=== PATIENT | male | born 1950 | race Caucasian/White ===

== ENCOUNTER 2016-05-16 12:45 | Observation (INO) | payer OTHER ==
[~2016-05-16 12:45] MED LIST: BUPIVACAINE 0.5% 30 ML SDV ONE; LIDOCAINE 1% 30 ML SDV ONE; SODIUM BICARBONATE 10 MEQ/10 ML SYR IVP ONE
[2016-05-16] MEDS ORDERED: LIDOCAINE 1% 2 ML INJ ONE (13:08)
[2016-05-16] MEDS ORDERED: levOFLOXACIN 500 MG/DEXTROSE 100 ML IV ONE (14:30)
[2016-05-16] MEDS ORDERED: fentaNYL 100 MCG/2 ML INJ ONE ×2 (14:40)
[2016-05-16] MEDS ORDERED: MIDAZOLAM 2 MG/2 ML VIAL ONE (14:40)
[2016-05-16] MEDS ORDERED: DEXAMETHASONE 4 MG/ML VIAL ONE ×2 (14:41)
[2016-05-16] MEDS ORDERED: PROPOFOL 200 MG/20 ML VIAL ONE (14:41)
[2016-05-16] MEDS ORDERED: ROCURONIUM 50 MG/5 ML VIAL ONE (14:41)
[2016-05-16] MEDS ORDERED: LIDOCAINE 2% 100 MG/5 ML SYR ONE (14:41)
[2016-05-16] MEDS ORDERED: ONDANSETRON 4 MG/2 ML VIAL IVP PRN (16:34)
[2016-05-16] MEDS: OXYCODONE/APAP 5/325 TAB PO PRN (18:13)
[2016-05-16 18:40] VITALS: RESP 16
--- NOTE | 2016-05-16 18:59 | SOAPPROG ---
SOAP Progress Note Assessment/Plan: Assessment: POSTOP STABLE. WOUNDS DRY. TOLERATING P.O. Plan: HOME IN THE A.M. 05/16/16 18:58 Objective: Vital Signs Temp Pulse Resp BP Pulse Ox 36.8 C 91 16 127/69 H 96 05/16/16 18:38 05/16/16 18:38 05/16/16 18:38 05/16/16 18:38 05/16/16 18:38 05/15/16 05/16/16 05/17/16 05:59 05:59 05:59 Intake Total 620 Output Total 5 Balance 615 ICD10 Worksheet Patient Problems: Problems Problem Status Onset Chronic renal failure Acute - ICD10 Problem Qualifiers (1) Chronic renal failure Qualifiers: Chronic kidney disease stage: C
[2016-05-16] MEDS ORDERED: ZOLPIDEM TARTRATE 5 MG TAB PO PRN (19:40)
[2016-05-16] MEDS ORDERED: PNEUMOC 13-VAL CONJ-DIP CRM/PF 0.5 ML SYR IM ONE (20:39)
[2016-05-16] MEDS: METOPROLOL TARTRATE 25 MG TAB PO SCH (20:47)
[2016-05-17] MEDS ORDERED: LEVOTHYROXINE 112 MCG TAB PO SCH (06:00)
[2016-05-17] MEDS: OXYCODONE/APAP 5/325 TAB PO PRN (07:24)
[2016-05-17 07:55] VITALS: BP 117/67; PULSE 112; TEMP 98.4; O2SAT 94
[2016-05-17] MEDS ORDERED: SEVELAMER HCL 800 MG TAB PO SCH (08:00)
[2016-05-17] MEDS: METOPROLOL TARTRATE 25 MG TAB PO SCH (08:01)
--- NOTE | 2016-05-17 08:08 | SOAPPROG ---
SOAP Progress Note Assessment/Plan: Assessment/Plan: 66 Y M s/p PD cath placement. POD#1. Doing well. Stayed overnight for social reasons. D/c to home today. 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 S: Sore, but pain controlled. No N/V. O: alert, nad no wob rrr abd soft, wounds well dressed and dressing with minor serosanguinous shadowing 05/17/16 08:06 Objective: Vital Signs Temp Pulse Resp BP Pulse Ox 36.9 C 112 H 16 117/67 94 05/17/16 07:53 05/17/16 08:01 05/17/16 07:53 05/17/16 08:01 05/17/16 07:53 05/16/16 05/17/16 05/18/16 05:59 05:59 05:59 Intake Total 620 300 Output Total 305 325 Balance 315 -25 ICD10 Worksheet Patient Problems: Problems Problem Status Onset Chronic renal failure Acute
[2016-05-17] MEDS ORDERED: ATORVASTATIN CALCIUM 10 MG TAB PO SCH (09:00)
[2016-05-17] MEDS ORDERED: FERROUS SULFATE 325 MG TAB PO SCH (09:00)
[2016-05-17] MEDS ORDERED: GABAPENTIN 100 MG CAP PO SCH (09:00)
[2016-05-17] MEDS ORDERED: amLODIPine BESYLATE 5 MG TAB PO SCH (09:00)
[2016-05-17] MEDS ORDERED: ASPIRIN 81 MG CHEWABLE TAB PO SCH (09:00)
[2016-05-17] MEDS ORDERED: ALLOPURINOL 100 MG TAB PO SCH (09:00)
--- NOTE | 2016-05-17 10:11 | GOP ---
[f rep st] OPERATIVE REPORT DATE OF OPERATION: 05/16/2016 SURGEON: Chandra Galindo MD MANAGER PERFORMANCE: Letha Fenton PA-C ANESTHESIOLOGIST: Daniel Muñiz MD PREOPERATIVE DIAGNOSIS: Chronic renal failure. POSTOPERATIVE DIAGNOSIS: Chronic renal failure. PROCEDURE PERFORMED: Laparoscopic peritoneal dialysis catheter. FINDINGS: Patient was found to have a good flow and good position of the catheter. Did have some i ntraabdominal adhesions for unknown reasons. DESCRIPTION OF PROCEDURE: The patient was taken to the operating room where he received satisfactor y general endotracheal anesthesia by Dr. Daniel Muñiz MD, placed in the supine position, prep ped and draped in usual sterile fashion. A periumbilical incision was made and carried down to the rectus sheath. A Veress needle was inserted. Pneumoperitoneum was established. Trocar was introdu frank. Laparoscope was introduced. Good visualization was obtained. A 2nd trocar was placed in the left lower quadrant under direct vision. A swan neck catheter was introduced via the upper incision and positioned in the depths of the pelvis. After the trocar was then removed, the fascial incisio n was closed with 0 Vicryl interrupted sutures to position the Dacron pledget underneath the fascia and above the perineum. The remaining portion of the catheter was then tunneled out through the [facility] trocar site. The abdomen was instilled with 400 cc of saline and then returned 300 cc without di fficulty. The wounds were infiltrated with 0.5% Marcaine. Subcu was closed with 3-0 Vicryl and ski n with a 4-0 Monocryl subcuticular stitch. The wounds were dressed. He tolerated the procedure wel l, was taken recovery room in good condition. There were no complications. /[id number]/MODL
[2016-05-17] MEDS ORDERED: HEPARIN 5,000 UNIT/0.5 ML SYR SC SCH (22:00)
--- NOTE | 2016-05-26 12:59 | GDS ---
[f rep st] DISCHARGE SUMMARY DISCHARGE DIAGNOSES: 1. Status post laparoscopic-guided peritoneal dialysis placement. 2. Chronic kidney disease. Other diagnoses include: 1. Anemia. 2. Hypertension. 3. Hypothyroidism. 4. Osteoarthrosis. 5. Remote alcohol abuse and NSAID overuse. PROCEDURES: Laparoscopic-guided peritoneal dialysis catheter placement. FINDINGS: Patient was found to have good flow and good position of the catheter. He did have some intraabdominal adhesions for unknown reasons. HOSPITAL COURSE: The patient is a 66-year-old male with chronic kidney disease who had a peritoneal dialysis catheter placed by Dr. Galindo. The procedure was uncomplicated and he tolerated it well. As he did not have a ride to go home or someone to stay with him for the night, it was elected to ke ep him overnight for observation. His hospital stay was uneventful. DISCHARGE INSTRUCTIONS: Patient was discharged to home in stable condition on postoperative day 1 w ith plans for outpatient followup with both the peritoneal dialysis nurses and Dr. Galindo. /[id number]/MODL
== END 2016-05-17 10:01 | disposition home or self-care (01) ==
LOC: FSGY 12:45 → F3E 16:27
PROVIDERS: ADMIT Surgery; ATTEND Surgery
PROC: 0WHG33Z Insertion of Infusion Device into Peritoneal Cavity, Percutaneous Approach (ICD-10-PCS; principal; 2016-05-16 14:15)
DX: N18.4 Chronic kidney disease, stage 4 (severe) (principal); I12.9 Hypertensive chronic kidney disease with stage 1 through stage 4 chronic kidney disease, or unspecified chronic kidney disease; E03.9 Hypothyroidism, unspecified; D64.9 Anemia, unspecified; J44.9 Chronic obstructive pulmonary disease, unspecified; F17.210 Nicotine dependence, cigarettes, uncomplicated; Z88.0 Allergy status to penicillin; Z23 Encounter for immunization
CPT/HCPCS: 49418; 90670; C1750; G0009; G0378; J1100; J1956; J2001; J2250; J2704; J3010